=== PATIENT | female | born 1970 | race Caucasian/White ===

== ENCOUNTER 2018-09-08 18:54 | Emergency (ER) | payer OTHER ==
[~2018-09-08] VITALS: Ht 165.1 cm; Wt 66.0 kg
[2018-09-09 00:31] LABS: BASOPHILS % 0.7 % (0.0-2.0); EOSINOPHILS % 2.1 % (0.0-5.0); HEMATOCRIT. 40.9 % (36.0-48.0); HEMOGLOBIN. 13.4 g/dL (12.0-16.0); LYMPHOCYTES % 41.4 % (20.0-50.0); MEAN CORPUSCULAR HEMOGLOBIN 29.7 pg (28.0-32.0); MEAN CORPUSCULAR VOLUME 90.9 fL (81.0-99.0); MEAN PLATELET VOLUME 7.8 fl (7.4-10.4); MONOCYTES % 5.9 % (2.0-8.0); NEUTROPHILS % 49.9 % (40.0-76.0); PLATELET 451 x1000/uL (130-400)
[2018-09-09 00:37] LABS: CHLORIDE 107 mEq/L (98-107)
[2018-09-09 01:11] VITALS: BP 111/65
== END 2018-09-09 01:15 | disposition home or self-care (01) ==
LOC: ER 18:54
DX: R00.2 Palpitations (principal)
CPT/HCPCS: 36415; 71045; 81025; 84443; 84484; 93005; 99284